=== PATIENT | female | born 1955 | race Caucasian/White ===

== ENCOUNTER 2018-07-11 14:06 | Outpatient (CLI) | payer OTHER ==
--- NOTE | 2018-07-11 15:57 | MMO ---
BILATERAL DIGITAL SCREENING MAMMOGRAMS: HISTORY: This 62-year-old female presents for digital screening mammography. COMPARISON: 10/14/2014 and 08/05/2013. This patient's mammograms are interpreted with the assistance of computer-aided detection. FINDINGS: Scattered areas of fibroglandular density are noted bilaterally. There are typically stable calcific ations in both breasts. No direct or indirect evidence of malignancy. IMPRESSION: BI-RADS category 2, benign findings. Continued routine screening. BIRADS 2: Benign Finding(s) Routine annual screening mammography (for women over age 40) POS: [facility]
== END 2018-07-11 14:07 | disposition home or self-care (01) ==
LOC: SCSMAMMO 14:06
PROVIDERS: ATTEND Family Medicine
DX: Z12.31 Encounter for screening mammogram for malignant neoplasm of breast (principal)
CPT/HCPCS: 77067